=== PATIENT | male | born 1930 | race Caucasian/White ===

== ENCOUNTER → 2016-10-07 | Outpatient (CLI) | payer MEDICARE, OTHER | END | disposition home or self-care (01) | LOC: PCVCCLINIC 14:25 | PROVIDERS: ATTEND Internal Medicine | DX: I25.10 Atherosclerotic heart disease of native coronary artery without angina pectoris (principal); I35.0 Nonrheumatic aortic (valve) stenosis; I48.2 Chronic atrial fibrillation; I65.29 Occlusion and stenosis of unspecified carotid artery; E78.5 Hyperlipidemia, unspecified; I10 Essential (primary) hypertension; Z95.0 Presence of cardiac pacemaker | CPT/HCPCS: 80061; 93005; G0463 ==

== ENCOUNTER → 2017-04-11 | Outpatient (CLI) | payer MEDICARE, OTHER ==
--- NOTE | 2017-04-11 15:03 | PCVCIMAG ---
APPROVED REPORT Study performed: 04/11/2017 13:00:56 EXAM: Comprehensive 2D, Doppler, and color-flow Echocardiogram Patient Location: Echo lab Status: routine BSA: 2.04 BP: 104/60 mmHg Rhythm: Pacemaker Other Information Study Quality: Good Indications Diabetes Bradycardia Aortic Stenosis. Pacemaker 2D Dimensions IVSd: 17.33 (7-11mm)LVOT Diam: 20.43 (18-24mm) LVDd: 41.96 mm PWd: 16.69 (7-11mm)Ascending Ao: 33.58 (22-36mm) LVDs: 33.95 (25-40mm) Left Atrium: 47.98 (27-40mm) Aortic Root: 25.26 mm LV Single Plane 4CH: 42.58 % LV Single Plane 2CH: 44.36 %Hall's LVEF: 43.47 % Biplane EF: 46.7 % Volumes Left Atrial Volume (Systole) Single Plane 4CH: 76.86 mLSingle Plane 2CH: 96.94 mL LA ESV Index: 43.00 mL/m2 Aortic Valve AoV Peak Bobby.: 2.98 m/s AO Peak Gr.: 35.57 mmHgLVOT Max P.11 mmHg AO Mean Gr.: 22.46 mmHgLVOT Mean P.64 mmHg AO V2 Mean: 2.24 m/sLVOT Max V: 0.88 m/s AO V2 VTI: 74.33 cmLVOT Mean V: 0.60 m/s DONOVAN (VTI): 0.99 [id number] V1 VTI: 22.49 cm DONOVAN Vmax: 0.97 cm2 AI Vmax: 3.20 m/sSV (LVOT): 73.72 mL AI Sully: 1.92 m/s2 AI PHT: 486.70 ms Pulmonary Valve PV Peak Gr.: 1.58 mmHg Tricuspid Valve TR Peak Bobby.: 3.70 m/s TR Peak Gr.: 54.71 mmHg Left Ventricle The left ventricle is normal size. There is normal LV segmental wall motion. Mild concentric left ventricular hypertrophy. Left ventricular systolic function is at the lower limits of normal LVEF is 50%. This study is not technically sufficient to allow evaluation of the LV diastolic function. Right Ventricle Pacemaker lead is noted. Atria Left atrium is moderately dilated. Pacemaker lead is present in the right atrium. Aortic Valve Moderate to heavy leaflet calcification Mild aortic regurgitation. Moderate to moderately severe aortic stenosis. Peak gradient is 36mmHg. Mean gradient 23mmHg. Valve area 0.9cm2. Mitral Valve Moderate mitral annular calcification Mild mitral regurgitation. Tricuspid Valve Mild tricuspid regurgitation. Pulmonary artery pressure is 62mmhg. Pulmonic Valve Trace pulmonic regurgitation. Pericardium There is no pericardial effusion. <Conclusion> Left ventricular systolic function is at the lower limits of normal, LVH There is normal LV segmental wall motion. LVEF 50%. Both atria are moderately dilated. Pacing wires in right heart Moderate to heavy aortic leaflet calcification Moderate to moderately severe aortic stenosis. Peak gradient is 36mmHg. Mean gradient 23mmHg. Valve area 0.9cm2. Mild aortic insufficiency Moderate mitral annular calcification Mild mitral regurgitation. There is no pericardial effusion.
== END | disposition home or self-care (01) ==
LOC: PCVCIMAG 13:02
PROVIDERS: ATTEND Internal Medicine
DX: I08.3 Combined rheumatic disorders of mitral, aortic and tricuspid valves (principal); I25.10 Atherosclerotic heart disease of native coronary artery without angina pectoris; I48.2 Chronic atrial fibrillation; I10 Essential (primary) hypertension; I49.5 Sick sinus syndrome; E78.5 Hyperlipidemia, unspecified; I65.23 Occlusion and stenosis of bilateral carotid arteries; Z95.0 Presence of cardiac pacemaker; E11.9 Type 2 diabetes mellitus without complications; Z79.84 Long term (current) use of oral hypoglycemic drugs; Z79.899 Other long term (current) drug therapy; Z88.8 Allergy status to other drugs, medicaments and biological substances
CPT/HCPCS: 80061; 93005; 93280; 93306; G0463

== ENCOUNTER → 2017-10-12 | Outpatient (CLI) | payer MEDICARE, OTHER | END | disposition home or self-care (01) | LOC: PCVCCLINIC 14:14 | DX: I13.0 Hypertensive heart and chronic kidney disease with heart failure and stage 1 through stage 4 chronic kidney disease, or unspecified chronic kidney disease (principal); N18.3 Chronic kidney disease, stage 3 (moderate); I50.32 Chronic diastolic (congestive) heart failure; I25.10 Atherosclerotic heart disease of native coronary artery without angina pectoris; I48.2 Chronic atrial fibrillation; I49.5 Sick sinus syndrome; I65.23 Occlusion and stenosis of bilateral carotid arteries; I35.0 Nonrheumatic aortic (valve) stenosis; R94.31 Abnormal electrocardiogram [ECG] [EKG]; E78.5 Hyperlipidemia, unspecified; Z95.0 Presence of cardiac pacemaker; Z87.891 Personal history of nicotine dependence; Z79.899 Other long term (current) drug therapy | CPT/HCPCS: 36415; 80061; 93005; G0463 ==

== ENCOUNTER → 2017-10-27 | Outpatient (CLI) | payer MEDICARE, OTHER | END | disposition home or self-care (01) | LOC: PCVCCLINIC 14:21 | DX: I48.2 Chronic atrial fibrillation (principal); I25.10 Atherosclerotic heart disease of native coronary artery without angina pectoris; I50.32 Chronic diastolic (congestive) heart failure; E78.5 Hyperlipidemia, unspecified | CPT/HCPCS: 36415 ==

== ENCOUNTER → 2017-11-02 | Outpatient (CLI) | payer MEDICARE, OTHER ==
[~2017-11-02] MED LIST: BENZOCAINE ONE 20% MUCOSAL SPRAY.; IV NORMAL SALINE 500ML BAG 500 ML; MIDAZOLAM HCL/PF 2 MG/2 ML VIAL.; fentaNYL PF VIAL 100 MCG/2 ML VIAL
== END | disposition home or self-care (01) ==
LOC: PCVCINTER 11:08
DX: I48.91 Unspecified atrial fibrillation (principal); I08.0 Rheumatic disorders of both mitral and aortic valves; I11.0 Hypertensive heart disease with heart failure; I50.9 Heart failure, unspecified; I25.10 Atherosclerotic heart disease of native coronary artery without angina pectoris; Z95.0 Presence of cardiac pacemaker; I70.0 Atherosclerosis of aorta
CPT/HCPCS: 93312; 93325; J2250; J3010; J7040